=== PATIENT | male | born 1980 | race American Indian/Alaskan Native ===

== ENCOUNTER 2017-11-11 15:42 | Emergency (ER) | payer BC ==
--- NOTE | 2017-11-11 17:07 | ED PDOC ---
Arrival/HPI - General Historian: Patient - General Chief Complaint: Abnormal Skin Integrity Time Seen by Provider: 11/11/17 16:03 - History of Present Illness Narrative History of Present Illness (Text): 11/11/17 17:04 Patient is a 37 year old male with no PMH who presents to ED with a laceration on his right hand. He was in [place] visiting an auto parts shop when he got upset when he found out how much a particular part would cost. He moved his hand across the metal counter, cutting his hand on the dorsal side. He currently has a 2.5 cm superficial laceration on the dorsum of his right hand. (Morteza Pardo) Past Medical History - Cardiac Hx Cardiac Disorders: Yes Hx Hypertension: Yes - Pulmonary Hx Respiratory Disorders: No - Neurological Hx Neurological Disorder: No - HEENT Hx HEENT Disorder: No - Renal Hx Renal Disorder: No - Endocrine/Metabolic Hx Endocrine Disorders: Yes (borderline DM) - Hematological/Oncological Hx Blood Disorders: Yes (lymphedema) - Integumentary Hx Dermatological Disorder: No - Musculoskeletal/Rheumatological Hx Musculoskeletal Disorders: No - Gastrointestinal Hx Gastrointestinal Disorders: No - Genitourinary/Gynecological Hx Genitourinary Disorders: No - Psychiatric Hx Psychophysiologic Disorder: No Hx Substance Use: No Family/Social History Family/Social History: No Known Family HX Smoking Status: Former Smoker Hx Alcohol Use: Yes Frequency of alcohol use: Socially Hx Substance Use: No Allergies/Home Meds Allergies/Adverse Reactions: Allergies Penicillins Allergy (Verified 11/11/17 16:37) ANAPHYLAXIS Home Medications: Home Meds Medication Instructions Recorded Confirmed Unobtainable 11/11/17 11/11/17 Review of Systems - Physician Review All systems were reviewed & negative as marked: Yes - Review of Systems Constitutional: absent: Fatigue, Weight Change Eyes: absent: Vision Changes ENT: absent: Sore Throat, Rhinorrhea Respiratory: absent: SOB, Cough Cardiovascular: absent: Chest Pain, Syncope Gastrointestinal: absent: Abdominal Pain, Nausea, Vomiting Genitourinary Male: absent: Dysuria, Frequency Musculoskeletal: absent: Arthralgias Skin: absent: Rash Neurological: absent: Headache, Dizziness Endocrine: absent: Diaphoresis Hemo/Lymphatic: absent: Adenopathy Psychiatric: absent: Anxiety, Depression Physical Exam Vital Signs Reviewed: Yes Temperature: Afebrile Blood Pressure: Normal Pulse: Regular Respiratory Rate: Normal Appearance: Positive for: Well-Appearing, Non-Toxic, Uncomfortable Pain Distress: Mild Mental Status: Positive for: Alert and Oriented X 3 - Systems Exam Head: Present: Atraumatic, Normocephalic Pupils: Present: PERRL Extroacular Muscles: Present: EOMI Conjunctiva: Present: Normal Ears: Present: Normal Mouth: Present: Moist Mucous Membranes Pharnyx: Present: Normal. No: ERYTHEMA, EXUDATE Neck: Present: Normal Range of Motion. No: JVD Respiratory/Chest: Present: Clear to Auscultation. No: Wheezes, Rales, Rhonchi Cardiovascular: Present: Regular Rate and Rhythm, Normal S1, S2. No: Murmurs, Rub, Gallop Abdomen: No: Tenderness, Rebound, Guarding Upper Extremity: Present: Normal ROM, NORMAL PULSES, Neurovascularly Intact, Other (visible 2.5 cm laceration on right dorsal hand). No: Cyanosis, Edema, Swelling, Erythema Lower Extremity: Present: Normal Inspection Skin: Present: Warm, Dry Psychiatric: Present: Alert, Oriented x 3 Vital Signs Temp Pulse Resp BP Pulse Ox 11/11/17 17:33 98.0 F 80 18 98 11/11/17 17:31 98.2 F 80 18 133/78 99 Medical Decision Making ED Course and Treatment: 11/11/17 17:12 -Laceration was repaired using 6 nylon sutures -Follow up in 14 days for suture removal -Patient requested Tdap booster vaccine, will give in ED (Morteza Pardo) Patient Seen With Resident: In agreement with resident note. Patient was seen and evaluated with resident, came up with plan and treatment together. (Jimmy Neely) - Medication Orders Current Medication Orders: Discontinued Medications Tetanus/Reduced Diphtheria/Acell Pertussis (Boostrix Vaccine Inj) 0.5 ml IM .ONCE ONE Stop: 11/11/17 17:18 Last Admin: 11/11/17 17:31 Dose: 0.5 ml Immunization Registry Document 11/11/17 17:31 [email or web address] (Rec: 11/11/17 17: [id number]) Immunization Registry Consent Date 11/11/17 Procedure: Wound Repair - Time Performed Time Performed: 17:00 - Time Out Time Out: Side verified, Site verified, Patient ID confirmed - Consent Obtained Consent obtained: Written - Performed by Performed by: Mid-level Provider (medical technologist clinical supervised by attending physician) - Indications Indication(s):: Laceration - Location Location:: Right, Dorsal, Hand Shape:: Linear Depth:: Epidermis - Anesthetic Technique Anesthetic Technique: Topical Local/Regional Anesthetic:: Lidocaine 1% w/epi - Debris Debris:: None - Irrigated Irrigated with ml of normal saline: 100 - Complexity Complexity:: Simple (one layer) - Wound repair method Sutures:: # (6), Size (5), Type (nylon) - Patient tolerated procedure Patient Tolerated Procedure:: Well Disposition/Present on Arrival - Present on Arrival Any Indicators Present on Arrival: No History of DVT/PE: No History of Uncontrolled Diabetes: No Urinary Catheter: No History of Decub. Ulcer: No History Surgical Site Infection Following: None - Disposition Have Diagnosis and Disposition been Completed?: Yes Disposition Time: 17:13 Patient Plan: Discharge - Disposition Diagnosis: Minor skin laceration Disposition: HOME/ ROUTINE Condition: GOOD Discharge Instructions (ExitCare): Taking Care of Cuts and Scrapes Additional Instructions: Follow up for suture removal in 14 days. Referrals: Josué Deluca MD [Primary Care Provider] - Follow up with primary Forms: [employer] (N[place]ali)
[2017-11-11] MEDS ORDERED: TDAP Vaccine 0.5 mL Syr IM ONE (17:17)
[2017-11-11 17:32] VITALS: BP 133/78; PULSE 80; RESP 18
[2017-11-11 17:35] VITALS: TEMP 98; O2SAT 98
== END 2017-11-11 17:34 | disposition home or self-care (01) ==
LOC: ED 15:42 → MERGE 15:42 → ED 17:34
DX: S61.411A Laceration without foreign body of right hand, initial encounter (principal); W45.8XXA Other foreign body or object entering through skin, initial encounter; I10 Essential (primary) hypertension; Z87.891 Personal history of nicotine dependence; Z23 Encounter for immunization